=== PATIENT | male | born 1995 | race Caucasian/White ===

== ENCOUNTER 2017-05-09 18:39 | Emergency (ER) | payer OTHER ==
[~2017-05-09] VITALS: Ht 165.1 cm; Wt 65.3 kg
[2017-05-09 18:41] VITALS: Ht 165.1 cm; Wt 65.3 kg
[2017-05-09] MEDS ORDERED: DiphenhydrAMINE HCL 50 MG/ML VIAL IV STA (18:55)
[2017-05-09] MEDS ORDERED: RANITIDINE HCL 50 MG/100 ML D5W IV STA (18:55)
[2017-05-09] MEDS ORDERED: SODIUM CHLORIDE 0.9% 1000ML 1,000 ML IV STA (18:55)
--- NOTE | 2017-05-09 19:02 | EMERGENCY ROOM VISIT NOTE ---
ED Visit Note First contact with patient: 18:50 CHIEF COMPLAINT: Allergic reaction HISTORY OF PRESENT ILLNESS: This 21-year-old male patient presents to the emergency department with his family after they developed sudden onset of hives and itching shortly after being stung by a bee around 5:30 PM today. Patient reports a history of allergic reaction to bee stings, but denies any history of severe reaction or anaphylaxis, no prior use of EpiPen. The patient does not have swelling of the face and lips has no sensation of swelling in the throat. The patient has not had shortness of breath or chest pain. Has has had previous reactions like this before. The patient took 2 Benadryl shortly after his symptoms started, he states he is feeling slightly better. There has been no change in the patient's soaps, detergents, foods, medications, or other environmental factors. REVIEW OF SYSTEMS: A review of systems was performed with positives and pertinent negatives listed in the history of present illness. All other systems were reviewed and are negative. ALLERGIES: See chart MEDICATIONS: See chart PMH: See chart SOCIAL HISTORY: See chart PHYSICAL EXAM:VITALS: Vitals are noted on the nurse's note and reviewed by myself. Vital signs stable. GENERAL: Pleasant and cooperative, in no acute distress, non-diaphoretic, well- developed well-nourished. THROAT: No pharyngeal edema or injection, no exudates or tonsillar hypertrophy. Airway patent. LUNGS: Clear to auscultation and breath sounds equal, no wheezes, rales, or rhonchi. EYES: PERRLA, EOMI, no discharge or injection. NEUROLOGICAL: Alert and oriented to person, place, and time. Normal sensation to light and sharp touch. HEART: Regular rate without murmurs, ectopy, gallops, or rubs. SKIN: Urticarial rash noted to the left anterior and posterior torso, arms and legs, blanching, itchy and not painful. There is a sting site noted to the left lateral chest just below the axilla, examined closely and scraped with a #15 blade for possible remaining stinger. The lips are not swollen. There is mild periorbital swelling. EMERGENCY DEPARTMENT COURSE: I examined the patient. He is in no acute distress and no concerning findings for anaphylaxis or severe allergic reaction. The patient was given IV fluid bolus, IV Benadryl, IV ranitidine. He felt much improved after treatment and was discharged in stable condition with discharge instructions. Current/Historical Medications No Active Prescriptions or Reported Meds Allergies Coded Allergies: No Known Allergies (Verified Allergy, Unknown, 04/13/08) Vital Signs Date Time Temp Pulse Resp B/P (MAP) Pulse Ox O2 Delivery O2 Flow Rate FiO2 05/09/17 19:22 98 Room Air 05/09/17 18:41 36.7 81 18 118/83 98 Room Air Medications Administered Medications (Trade) Dose Ordered Sig/Ricki Route Start Time Stop Time Status Last Admin Dose Admin Sodium Chloride 1,000 ml @ 999 mls/hr Q1H1M STAT IV 05/09/17 18:55 05/09/17 19:55 DC 05/09/17 19:10 999 MLS/HR Diphenhydramine HCl (Benadryl Inj) 25 mg NOW STAT IV 05/09/17 18:55 05/09/17 18:57 DC 05/09/17 19:10 25 MG Ranitidine HCl (zANTac IV) 50 mg NOW STAT IV 05/09/17 18:55 05/09/17 18:57 DC 05/09/17 19:10 50 MG Departure Information Impression Primary Impression: Allergic reaction to bee sting Dispostion Home / Self-Care Condition GOOD Prescriptions No Active Prescriptions or Reported Meds Patient Instructions ED Bite Sting Insect Gen Allergic React, My [facility] Additional Instructions You have been treated in the Emergency Department for an Allergic Reaction. You have been treated and monitored in the Emergency Department appropriately. You should take Benadryl (diphenhydramine) 25-50 mg orally every 4-6 hours for the next 24 hours, then as needed. This medication is [id number]-[id number] and you will NOT need a prescription to purchase this at your local pharmacy. Try to stay cool as much as possible. Avoid hot showers. As with every Emergency Department visit, you should follow-up with your primary care provider in 2-3 days for reevaluation. Return to the Emergency Department if you develop any of the following symptoms : wheezing, tongue or face swelling, tightness in your throat, shortness of breath, or fainting.
[2017-05-09 20:51] VITALS: BP 116/82; PULSE 81; TEMP 36.7; O2SAT 98
== END 2017-05-09 20:52 | disposition home or self-care (01) ==
LOC: C.EDB 18:40 → C.EDD 20:52
DX: T63.441A Toxic effect of venom of bees, accidental (unintentional), initial encounter (principal)

== ENCOUNTER 2017-05-11 07:42 | Emergency (ER) | payer OTHER ==
[~2017-05-11] VITALS: Ht 165.1 cm; Wt 70.7 kg
[2017-05-11 07:44] VITALS: TEMP 37.2; Ht 165.1 cm; Wt 70.7 kg
[2017-05-11 08:37] LABS: BASO % 0.2 %; BASO ABS # 0.01 K/uL (0-0.2); COMPLETE YES; EOS % 3.1 %; HEMATOCRIT 39.4 % (42-52); IG% 0.2 %; LYMPH % 33.5 %; LYMPH ABS # 1.62 K/uL (1.2-3.4); MEAN CELL VOLUME 83.7 fL (80-100); MEAN CORPUSCULAR HEMOGLOBIN 29.3 pg (25-34); MEAN PLATELET VOLUME 11.7 fL (7.4-10.4); MONO % 8.7 %; NEUT % 54.3 %; PLATELET COUNT 181 K/uL (130-400); RED BLOOD COUNT 4.71 M/uL (4.7-6.1); WHITE BLOOD COUNT 4.83 K/uL (4.8-10.8)
[2017-05-11 08:52] LABS: CALCIUM 8.2 mg/dl (8.5-10.1)
[2017-05-11 08:53] LABS: BUN/CREATININE RATIO 12.2 (10-20); CREATININE 0.95 mg/dl (0.60-1.40); MAGNESIUM 2.2 mg/dl (1.8-2.4); POTASSIUM 3.7 mmol/L (3.5-5.1)
[2017-05-11 08:56] LABS: ALB/GLOB RATIO 1.3 (0.9-2)
[2017-05-11 10:28] LABS: URINE APPEARANCE CLEAR (CLEAR); URINE BILIRUBIN NEG (NEG); URINE COLOR YELLOW; URINE NITRITE NEG (NEG); URINE PH 7.5 (4.5-7.5); URINE SPECIFIC GRAVITY 1.016 (1.000-1.030); UROBILINOGEN NEG (NEG); ZZUR CULT IF INDIC CLEAN CATCH NO
[2017-05-11 10:37] LABS: MANUAL MICROSCOPIC REQUIRED? NO; REVIEW REQ? NO
--- NOTE | 2017-05-11 10:49 | DIAGNOSTIC IMAGING REPORT ---
ABDOMINAL ULTRASOUND, UPPER QUADRANT HISTORY: Pain. Nausea. LUQ pain, recent allergic rxn. COMPARISON: None. FINDINGS: Pancreas: The pancreas demonstrates a normal echotexture. Liver: Unremarkable. Gallbladder: No gallbladder wall thickening. No gallstones. CBD: 5 mm Right kidney: No hydronephrosis. Spleen: Normal IMPRESSION: Normal study Electronically signed by: Errol Renteria M.D. 05/11/2017 10:47 AM Dictated Date/Time: 05/11/2017 10:46 AM
[2017-05-11 10:51] LABS: INR 1.1 (0.9-1.1); PROTHROMBIN TIME (PATIENT) 11.4 SECONDS (9.0-12.0)
--- NOTE | 2017-05-11 11:26 | EMERGENCY ROOM VISIT NOTE ---
History First contact with patient: 07:48 Chief Complaint: ALLERGIC REACTION Stated Complaint: ALLERGIC REACTION Nursing Triage Summary: Bee sting on left ribs Thursday, now swelling under eyes and full feeling in abdomen on left side. History of Present Illness The patient is a 21 year old male who presents to the Emergency Room via private vehicle accompanied by parents with complaints of "allergic reaction". The patient states that he was seen in the emergency department on Thursday, with what he believes were stings from a bee. He had associated allergic reaction therefore treated with Zantac and Benadryl. This helped alleviate his symptoms. He states then he woke this morning, with generalized vague abdominal pain in the left upper quadrant to left lower quadrant as well as what he believes is increased abdominal girth and edema below his eyes. He denies any fevers, chills, chest pain or shortness of breath. Review of Systems A complete 10-point Review of Systems was discussed with the patient, with pertinent positives and negatives listed in the History of Present Illness. All remaining Review of Systems questions can be considered negative unless otherwise specified. Past Medical/Surgical History Allergic reaction Family History No pertinent family history at this time. Social History Smoking Status: Former Smoker Social History: Patient is employed locally. Current/Historical Medications No Active Prescriptions or Reported Meds Allergies Coded Allergies: No Known Allergies (Verified Allergy, Unknown, 04/13/08) Physical Exam Vital Signs Date Time Temp Pulse Resp B/P (MAP) Pulse Ox O2 Delivery O2 Flow Rate FiO2 05/11/17 11:31 116/75 05/11/17 11:27 61 99 05/11/17 11:23 113/75 05/11/17 09:27 65 22 99 05/11/17 09:12 66 17 99 05/11/17 09:01 110/72 05/11/17 08:57 63 18 99 05/11/17 08:42 64 18 99 05/11/17 08:31 122/75 05/11/17 08:27 67 16 99 05/11/17 08:12 67 16 99 05/11/17 08:01 113/80 05/11/17 08:01 74 05/11/17 07:57 75 19 99 05/11/17 07:54 123/85 05/11/17 07:44 37.2 72 20 111/94 100 Room Air Physical Exam VITAL SIGNS - Vital signs and nursing notes were reviewed. Patient is afebrile , blood pressure of 111/94, non-tachycardic and saturating well on room air 100% . GENERAL -21-year-old male appearing his stated age who is in no acute distress. Communicates well with provider and answers questions appropriately. SKIN - Without rashes. HEAD - NC/AT. MOUTH/OROPHARYNX - Without perioral cyanosis. Buccal mucosa pink and moist and without leukoplakia. Tongue midline with equal elevation of palate bilaterally. No tonsillar hypertrophy, erythema, or exudates noted. Fair dentition noted. NECK - Neck with FROM. Supple to palpation. No lymphadenopathy noted. No nuchal rigidity. LUNGS - Chest wall symmetric without accessory muscle use, intercostals retractions, or central cyanosis. Normal vesicular breath sounds CTA B/L. No wheezes, rales, or rhonchi appreciated. CARDIAC - RRR with S1/S2. No murmur, rubs, or gallops appreciated. ABDOMEN - Abdominal contour without pulsations or visible masses. There is mild tenderness in the Left upper quadrant region. No palpable masses, hepatosplenomegaly, or ascites noted. Mild abdominal distention noted. EXTREMITIES - No clubbing or peripheral cyanosis. No pretibial edema present. +5 /5 strength noted in UE/LE bilaterally. Medical Decision & Procedures ER Provider Diagnostic Interpretation: ABDOMINAL ULTRASOUND, UPPER QUADRANT HISTORY: Pain. Nausea. LUQ pain, recent allergic rxn. COMPARISON: None. FINDINGS: Pancreas: The pancreas demonstrates a normal echotexture. Liver: Unremarkable. Gallbladder: No gallbladder wall thickening. No gallstones. CBD: 5 mm Right kidney: No hydronephrosis. Spleen: Normal IMPRESSION: Normal study Electronically signed by: Errol Renteria M.D. Laboratory Results 05/11/17 08:25 Red Blood Count 4.71, Mean Corpuscular Volume 83.7, Mean Corpuscular Hemoglobin 29.3, Mean Corpuscular Hemoglobin Concent 35.0, Mean Platelet Volume 11.7, Neutrophils (%) (Auto) 54.3, Lymphocytes (%) (Auto) 33.5, Monocytes (%) (Auto) 8.7, Eosinophils (%) (Auto) 3.1, Basophils (%) (Auto) 0.2, Neutrophils # (Auto) 2.62, Lymphocytes # (Auto) 1.62, Monocytes # (Auto) 0.42, Eosinophils # (Auto) 0.15, Basophils # (Auto) 0.01 05/11/17 08:25 Test 05/11/17 08:25 05/11/17 09:35 05/11/17 10:20 05/11/17 10:45 White Blood Count 4.83 K/uL (4.8-10.8) Red Blood Count 4.71 M/uL (4.7-6.1) Hemoglobin 13.8 g/dL (14.0-18.0) Hematocrit 39.4 % (42-52) Mean Corpuscular Volume 83.7 fL (80-100) Mean Corpuscular Hemoglobin 29.3 pg (25-34) Mean Corpuscular Hemoglobin Concent 35.0 g/dl (32-36) Platelet Count 181 K/uL (130-400) Mean Platelet Volume 11.7 fL (7.4-10.4) Neutrophils (%) (Auto) 54.3 % Lymphocytes (%) (Auto) 33.5 % Monocytes (%) (Auto) 8.7 % Eosinophils (%) (Auto) 3.1 % Basophils (%) (Auto) 0.2 % Neutrophils # (Auto) 2.62 K/uL (1.4-6.5) Lymphocytes # (Auto) 1.62 K/uL (1.2-3.4) Monocytes # (Auto) 0.42 K/uL (0.11-0.59) Eosinophils # (Auto) 0.15 K/uL (0-0.5) Basophils # (Auto) 0.01 K/uL (0-0.2) RDW Standard Deviation 39.4 fL (36.4-46.3) RDW Coefficient of Variation 12.9 % (11.5-14.5) Immature Granulocyte % (Auto) 0.2 % Immature Granulocyte # (Auto) 0.01 K/uL (0.00-0.02) Anion Gap 8.0 mmol/L (3-11) Est Creatinine Clear Calc Drug Dose 107.9 ml/min Estimated GFR () 133.0 Estimated GFR (Non- 114.8 BUN/Creatinine Ratio 12.2 (10-20) Calcium Level 8.2 mg/dl (8.5-10.1) Magnesium Level 2.2 mg/dl (1.8-2.4) Total Bilirubin 0.2 mg/dl (0.2-1) Aspartate Amino Transf (AST/SGOT) 14 U/L (15-37) Alanine Aminotransferase (ALT/SGPT) 22 U/L (12-78) Alkaline Phosphatase 43 U/L (45-117) Total Protein 6.8 gm/dl (6.4-8.2) Albumin 3.8 gm/dl (3.4-5.0) Globulin 3.0 gm/dl (2.5-4.0) Albumin/Globulin Ratio 1.3 (0.9-2) Lipase 104 U/L (73-393) Prothrombin Time 11.4 SECONDS (9.0-12.0) Prothromb Time International Ratio 1.1 (0.9-1.1) Activated Partial Thromboplast Time 26.1 SECONDS (21.0-31.0) Partial Thromboplastin Ratio 1.0 Urine Color YELLOW Urine Appearance CLEAR (CLEAR) Urine pH 7.5 (4.5-7.5) Urine Specific [place] 1.016 (1.000-1.030) Urine Protein NEG (NEG) Urine Glucose (UA) TRACE (NEG) Urine Ketones NEG (NEG) Urine Occult Blood NEG (NEG) Urine Nitrite NEG (NEG) Urine Bilirubin NEG (NEG) Urine Urobilinogen NEG (NEG) Urine Leukocyte Esterase NEG (NEG) Troponin I < 0.015 ng/ml (0-0.045) Medical Decision Patient was seen and evaluated as above. After obtaining a thorough history and physical examination IV access was initiated and the above workup was performed. Patient is nontoxic upon his presentation, and his abdominal pain he notes is in minimal discomfort. There is slight edema noted to the inferior eyelids which I believe is allergic in nature. His blood work, reveals a normal white blood cell count, slight anemia of 13.8 hemoglobin, coagulations unremarkable. CMP reveals calcium low at 8.2, AST low at 14, and alkaline phosphatase low at 43. Troponin is negative. Urine is unremarkable. Ultrasound was obtained the abdomen after discussing benefits versus risk and is unremarkable. The benefits versus risk of obtaining a CAT scan was also entertained and discussed thoroughly with the patient and his family. The decision was made to withhold this diagnostic study at this time secondary to believing that the radiation risk outweighed the benefit. He declined any pain medication. I believe his abdominal pain is likely secondary to the new medications being added to include the ibuprofen and Benadryl. His vital signs here are stable. He appears stable for discharge at this time. He is to follow -up with his family doctor regarding today's visit, or return if worsening. He was educated upon worrisome symptoms which to return, had questions prior to discharge, and was discharged home in good condition. EKG revealed a sinus bradycardia, no ectopy or ischemic change. In the evaluation and treatment of this patient following differential diagnoses were entertained: Abdominal discomfort secondary to medication, ACS, allergic reaction, among others. Impression Primary Impression: Abdominal fullness in left flank Departure Information Dispostion Home / Self-Care Condition GOOD Prescriptions No Active Prescriptions or Reported Meds Referrals Errol Coats M.D. (PCP) Patient Instructions My [facility] Additional Instructions You have been treated in the Emergency Department your Abdominal Pain. Laboratory results and imaging studies have ruled out any emergent causes for your abdominal pain which would warrant admission or surgery. For pain control, you can use the following ijbk-wbb-[id number] medicines (if >12 yo): - Regular strength (325mg/tab) Tylenol (acetaminophen) 2 tabs every 4-6 hours as needed. Do not exceed 12 tablets in a 24 hour period. Avoid taking more than 3 grams (3000 mg) of Tylenol per day. This includes any other sources of acetaminophen you may take on a regular basis. - Regular strength (200 mg/tab) Advil (ibuprofen) 1-2 tabs every 4-6 hours as needed. Do not exceed a dose of 3200 mg per day. Drink plenty of water and stay well hydrated. As with any trip to the Emergency Department, you should follow-up with your Primary Care Provider from today's visit. Please give them a call later today. Please follow-up regarding your blood work today. Return to the emergency department if your symptoms persist despite treatment plan outlined above or if the following symptoms occur: increased fevers, chills , worsening nausea/vomiting, blood in your stool or urine. Please return to the emergency department with any new/concerning symptoms.
[2017-05-11 11:27] VITALS: PULSE 61; O2SAT 99
[2017-05-11 11:31] VITALS: BP 116/75
== END 2017-05-11 11:37 | disposition home or self-care (01) ==
LOC: C.EDB 07:43
DX: R10.12 Left upper quadrant pain (principal); Z87.891 Personal history of nicotine dependence